=== PATIENT | male | born 1945 | race Caucasian/White ===

== ENCOUNTER 2021-02-20 16:27 | Emergency (ER) | payer OTHER, SELFPAY ==
[2021-02-20 16:40] VITALS: BP 133/64; PULSE 73; RESP 18; TEMP 36.6; O2SAT 99
--- NOTE | 2021-02-20 17:18 | ED.EAR ---
HPI - Ear Problem General Chief complaint: Ear Stated complaint: foreign object in ear Time Seen by Provider: 02/20/21 17:19 Source: patient and RN notes reviewed Mode of arrival: ambulatory Limitations: no limitations History of Present Illness HPI Narrative: 75-year-old male presents with concern for possible foreign body in the left ear. Reports he used a Q-tip and when he pulled the Q-tip out the cotton portion was gone. He believes it is in his ear. He denies pain, purulent discharge. Patient reports recent illness, unrelated to today's complaint that caused loss of hearing in the left ear, he denies any change to that with a foreign body. MD Complaint: foreign body Related Data Home Medications Medication Instructions Recorded Confirmed amlodipine 5 mg PO DAILY 02/20/21 02/20/21 aspirin [Adult Low Dose Aspirin] 81 mg PO DAILY 02/20/21 02/20/21 atenolol 50 mg PO DAILY 02/20/21 02/20/21 cholecalciferol (vitamin D3) 10 mcg PO DAILY 02/20/21 02/20/21 [Vitamin D3] coenzyme [id number] E [CoQ10 SG 1 cap PO DAILY 02/20/21 02/20/21 100] fluticasone propionate 50 mcg INTRANASAL DIRECTED 02/20/21 02/20/21 hydrochlorothiazide 25 mg PO DAILY 02/20/21 02/20/21 nystatin 1 applic TOPICAL DIRECTED 02/20/21 02/20/21 omega-3 fatty acids [Fish Oil] 3,600 mg PO DAILY 02/20/21 02/20/21 omeprazole 40 mg PO DAILY 02/20/21 02/20/21 pravastatin 40 mg PO DAILY 02/20/21 02/20/21 Allergies Allergy/AdvReac Type Severity Reaction Status Date / Time amoxicillin Allergy Unknown Hives Verified 02/20/21 16:33 alfuzosin Allergy Palpitation Verified 02/20/21 16:43 s atorvastatin [From Lipitor] Allergy Cramping Verified 02/20/21 16:43 of the Muscles ezetimibe [From Zetia] Allergy Redness of Verified 02/20/21 16:43 Skin niacin Allergy Redness of Verified 02/20/21 16:43 [From Niaspan Skin Extended-Release] rosuvastatin [From Crestor] Allergy Cramping Verified 02/20/21 16:43 of the Muscles simvastatin [From Zocor] Allergy Cramping Verified 02/20/21 16:43 of the Muscles tamsulosin Allergy Palpitation Verified 02/20/21 16:43 s ciprofloxacin [From Cipro] AdvReac Other Verified 02/20/21 16:44 Contrast Media Allergy Unknown Dyspnea / Uncoded 02/20/21 16:33 SOB LARITINE Allergy Unknown Hives Uncoded 02/20/21 16:41 Review of Systems Review of Systems: CONSTITUTIONAL: Denies malaise, chills, sweats, or fever. ENT: Denies rhinorrhea, congestion, sinus pain, otalgia or sore throat. Reports possible foreign body in the left ear SKIN: Denies rash or itching. NEUROLOGIC: Denies headache. All systems reviewed & are unremarkable except as noted in HPI and below PMFSH Comments At time of signature, agree with nursing past medical, surgical, social and family history. There is no relevant family history pertinent to the presenting complaint Exam Narrative: GENERAL: Well-appearing, well-nourished, and in no acute distress. HEAD: Normocephalic EYES: PERRLA, conjunctivae clear ENT: Mucous membranes moist. Foreign body noted in the left ear, after removed: TM pearly gibbs with sharp light reflex bilaterally; no tragal tenderness. NECK: Supple. CHEST: No respiratory distress. Speaks in full sentences. HEART: Regular rate and rhythm. SKIN: Warm, dry, no rash. NEURO: Alert and oriented x3. PSYCH: Normal mood and affect Course Course Emergency Course: Patient is aware of diagnosis, understands and agrees to treatment plan. Anticipatory guidance given. Patient agrees to follow-up as directed and is aware of reasons to seek care at the emergency department. Portions of this record may have been created with voice recognition software Vital Signs Vital signs: Vital Signs Temperature 97.8 F 02/20/21 16:40 Pulse Rate 73 02/20/21 16:40 Respiratory Rate 18 02/20/21 16:40 Blood Pressure 133/64 02/20/21 16:40 Pulse Oximetry 99 02/20/21 16:40 Temperature 97.8
== END 2021-02-20 17:28 | disposition home or self-care (01) ==
PROVIDERS: Emergency Provider Nurse Practitioner; PCP Family Medicine
DX: T16.2XXA Foreign body in left ear, initial encounter (principal); X58.XXXA Exposure to other specified factors, initial encounter; Z86.73 Personal history of transient ischemic attack (TIA), and cerebral infarction without residual deficits; I10 Essential (primary) hypertension; K21.9 Gastro-esophageal reflux disease without esophagitis; Z85.828 Personal history of other malignant neoplasm of skin
CPT/HCPCS: 69200; 99213; G0463

== ENCOUNTER 2022-02-01 11:03 | Emergency (ER) | payer OTHER, SELFPAY ==
[2022-02-01 11:13] VITALS: BP 182/75; PULSE 67; RESP 18; TEMP 36.4; O2SAT 99
--- NOTE | 2022-02-01 12:03 | ED.SKABFB ---
HPI - Skin/Abscess/Foreign Bdy General Chief complaint: Skin/Abscess/Foreign Body Stated complaint: Rash On Arm Time Seen by Provider: 02/01/22 11:55 Source: patient Mode of arrival: ambulatory Limitations: no limitations History of Present Illness HPI narrative: Patient presents today complaining of 2 small red dots on the right inner proximal elbow that have been present x1 week. He is concerned he may be shingles. He just had shingles in October that lasted for 2 months. He has tried some lotion at home that made the area burn. He otherwise has no pain or drainage.He has been scratching the area while asleep at night. Related Data Home Medications Medication Instructions Recorded Confirmed amlodipine 5 mg tablet 5 mg PO DAILY 02/20/21 02/01/22 aspirin 81 mg tablet 81 mg PO DAILY 02/20/21 02/01/22 atenolol 50 mg tablet 50 mg PO DAILY 02/20/21 02/01/22 cholecalciferol (vitamin D3) 10 10 mcg PO DAILY 02/20/21 02/01/22 mcg (400 unit) tablet (Vitamin D3) coenzyme K27-jctveol E 100 mg-100 1 cap PO DAILY 02/20/21 02/01/22 unit capsule fluticasone propionate 50 50 mcg intranasal DIRECTED 02/20/21 02/01/22 mcg/actuation nasal spray,suspension hydrochlorothiazide 25 mg tablet 25 mg PO DAILY 02/20/21 02/01/22 omega-3 fatty acids 3,600 mg PO DAILY 02/20/21 02/01/22 omeprazole 40 mg capsule,delayed 40 mg PO DAILY 02/20/21 02/01/22 release pravastatin 40 mg tablet 40 mg PO DAILY 02/20/21 02/01/22 Allergies Allergy/AdvReac Type Severity Reaction Status Date / Time amoxicillin Allergy Unknown Hives Verified 02/01/22 11:54 alfuzosin Allergy Palpitation Verified 02/01/22 11:54 s atorvastatin [From Lipitor] Allergy Cramping Verified 02/01/22 11:54 of the Muscles ezetimibe [From Zetia] Allergy Redness of Verified 02/01/22 11:54 Skin niacin Allergy Redness of Verified 02/01/22 11:54 [From Niaspan Skin Extended-Release] rosuvastatin [From Crestor] Allergy Cramping Verified 02/01/22 11:54 of the Muscles simvastatin [From Zocor] Allergy Cramping Verified 02/01/22 11:54 of the Muscles tamsulosin Allergy Palpitation Verified 02/01/22 11:54 s ciprofloxacin [From Cipro] AdvReac Other Verified 02/01/22 11:54 Contrast Media Allergy Unknown Dyspnea / Uncoded 02/01/22 11:54 SOB LARITINE Allergy Unknown Hives Uncoded 02/01/22 11:54 Review of Systems Review of Systems: CONSTITUTIONAL: Denies body aches, fever, chills, or sweats. EYES: Denies visual changes, redness, or discharge. ENT: Denies rhinorrhea, congestion, sore throat, or otalgia. CARDIOVASCULAR: Denies chest pain, palpitations, or edema. RESPIRATORY: Denies cough or dyspnea. GASTROINTESTINAL: Denies abdominal pain, nausea, vomiting, or diarrhea. GENITOURINARY: Denies dysuria or hematuria. SKIN: Denies itching, or wounds.+Rash MUSCULOSKELETAL: Denies back pain, joint pain, or myalgia. NEUROLOGIC: Denies headache, numbness, tingling, or weakness. PSYCH: Denies depression or anxiety. PMFSH Comments At time of signature, I have reviewed and agree with nursing past medical, surgical, social and family history unless otherwise noted. Please see nursing chart for further information. There is no relevant family history pertinent to the presenting complaint Exam Narrative: GENERAL: Well-appearing, well-nourished, and in no acute distress. HEAD: Normocephalic, atraumatic. EYES: EOMI. No redness or drainage. Conjunctivae normal. ENT: Mucous membranes pink and moist. NECK: Normal AROM. CHEST: No respiratory distress. EXTREMITIES: Normal range of motion. No edema. SKIN: Warm, dry. Capillary refill normal. Normal skin turgor. +2 pinpoint scabbed dots to the right inner elbow. They are slightly pink. No surrounding induration, no vesicles, no drainage, no tenderness. NEURO: No focal deficits. Alert and oriented x3. Gait steady. PSYCH: Normal affect. No signs of depression or anxiety. Course C
== END 2022-02-01 12:16 | disposition home or self-care (01) ==
PROVIDERS: Emergency Provider Nurse Practitioner; PCP Family Medicine
DX: L30.9 Dermatitis, unspecified (principal); I10 Essential (primary) hypertension; Z85.828 Personal history of other malignant neoplasm of skin; Z86.73 Personal history of transient ischemic attack (TIA), and cerebral infarction without residual deficits; Z95.1 Presence of aortocoronary bypass graft
CPT/HCPCS: 99213; G0463

== ENCOUNTER 2024-07-14 12:56 | Emergency (ER) | payer OTHER, SELFPAY ==
[2024-07-14 13:08] VITALS: BP 155/74; PULSE 76; RESP 20; TEMP 36.9; O2SAT 97
--- NOTE | 2024-07-14 13:19 | ED_ITS ---
HPI - URI/Sore Throat General Chief Complaint: Upper Respiratory Infection Stated Complaint: Cough/weak Time Seen by Provider: 07/14/24 13:19 Source: patient, RN notes reviewed and old records reviewed Mode of arrival: ambulatory Limitations: no limitations History of Present Illness HPI Narrative: Left knee 8-year-old male presents to the [facility] with complaints of cough, nasal drainage, headache, fatigue Symptoms started yesterday Onset (ago): day(s) (1) Treatments prior to arrival: cold medicine Related Data Home Medications ?Medication ?Instructions ?Recorded ?Confirmed ?Last Taken ?Type amlodipine 5 mg tablet 5 mg PO DAILY 02/20/21 02/01/22 Unknown History aspirin 81 mg tablet 81 mg PO DAILY 02/20/21 02/01/22 Unknown History atenolol 50 mg tablet 50 mg PO DAILY 02/20/21 02/01/22 Unknown History cholecalciferol (vitamin D3) 10 10 mcg PO DAILY 02/20/21 02/01/22 Unknown Hi story mcg (400 unit) tablet (Vitamin D3) coenzyme [id number] E 100 mg-100 1 cap PO DAILY 02/20/21 02/01/22 Unknown History unit capsule fluticasone propionate 50 50 mcg intranasal DIRECTED 02/20/21 02/01/22 Unknown History mcg/actuation nasal spray,suspension hydrochlorothiazide 25 mg tablet 25 mg PO DAILY 02/20/21 02/01/22 Unknown History omega-3 fatty acids 3,600 mg PO DAILY 02/20/21 02/01/22 Unknown History omeprazole 40 mg capsule,delayed 40 mg PO DAILY 02/20/21 02/01/22 Unknown History release pravastatin 40 mg tablet 40 mg PO DAILY 02/20/21 02/01/22 Unknown History Allergies Allergy/AdvReac Type Severity Reaction Status Date / Time amoxicillin Allergy Unknown Hives Verified 02/01/22 11:54 alfuzosin Allergy Palpitation Verified 02/01/22 11:54 s atorvastatin (From Lipitor) Allergy Cramping Verified 02/01/22 11:54 of the Muscles ezetimibe (From Zetia) Allergy Redness of Verified 02/01/22 11:54 Skin niacin (From Niaspan Allergy Redness of Verified 02/01/22 11:54 Extended-Release) Skin rosuvastatin (From Crestor) Allergy Cramping Verified 02/01/22 11:54 of the Muscles simvastatin (From Zocor) Allergy Cramping Verified 02/01/22 11:54 of the Muscles tamsulosin Allergy Palpitation Verified 02/01/22 11:54 s ciprofloxacin (From Cipro) AdvReac Other Verified 02/01/22 11:54 Contrast Media Allergy Unknown Dyspnea / Uncoded 02/01/22 11:54 SOB LARITINE Allergy Unknown Hives Uncoded 02/01/22 11:54 Review of Systems Review of Systems: All systems reviewed & are unremarkable except as noted in HPI and below Constitutional: Constitutional: Reports as per HPI, Reports body ache(s) and Reports headache(s) ENT: Reports as per HPI and Reports nasal congestion Cardiovascular: Cardiovascular: Reports no additional cardiovascular complaints, Denies chest pain and Denies dyspnea Respiratory: Respiratory: Reports as per HPI, Denies chest congestion, Reports cough and Denies dyspnea Musculoskeletal: Musculoskeletal: Reports no additional musculoskeletal complaints Integumentary/Breasts: Skin/Breast: Reports system reviewed and no additional complaints, except as docu PMFSH Past Medical History Medical History High cholesterol History of high blood pressure Comments At the time of my signature, I reviewed and agree with the nursing past medical, surgical, social, and family history. There is no relevant family history pertinent to the patient complaint. Exam Const: General: cooperative, comfortable, no acute distress, well developed, alert, ill appearing chronically; not acutely and well nourished Nutritional Appearance: well nourished and obese Orientation/consciousness: patient oriented x3 Limitations: no limitations HENMT: Head: normal to inspection Ears: external ears normal and other (Hard of hearing) Eyes: General: appearance normal, both eyes and all related structures Alignment and Position: alignment normal Neck: Neck: normal visual inspection, full ROM, no lymphadenopathy and no meningeal signs Chest: Chest palpation & inspection: normal inspection of the chest Resp: Effort & Inspection: normal respiratory effort and able to speak in complete sentences Auscultation: clear to auscultation bilaterally, no crackles, no rales, no rhonchi, no wheezes and diminished lung sounds bilateral Cardio: Rate: regular rate Skin: General skin exam: normal color and no rashes or lesions noted Neuro: General: patient oriented x3, gait normal, moves all extremities and no meningeal signs Cognition (Neuro): normal cognition Speech: normal speech Gait exam (Neuro): Normal gait present Extrem: General: normal to inspection, full ROM, capillary refill normal and normal gait Psych: Appearance: grossly normal and well kempt Mental Status: mental status grossly normal Speech and movement: Normal speech and movement present and Clear speech present Affect: normal affect Attitude: cooperative Course Course Level of Care: Express Care Visit Vital Signs Vital signs: Vital Signs Temperature 98.5 F 07/14/24 13:08 Pulse Rate 76 07/14/24 13:08 Respiratory Rate 20 07/14/24 13:08 Blood Pressure 155/74 H 07/14/24 13:08 Pulse Oximetry 97 07/14/24 13:08 Oxygen Delivery Room Air 07/14/24 13:08 Temperature 98.5 F 07/14/24 13:08 Pulse Rate 76 07/14/24 13:08 Respiratory Rate 20 07/14/24 13:08 Blood Pressure 155/74 H 07/14/24 13:08 Pulse Oximetry 97 07/14/24 13:08 Oxygen Delivery Room Air 07/14/24 13:08 Reviewed MDM - URI/Sore Throat MDM Narrative Medical decision making narrative: Patient sitting in exam room. Nontoxic, vitals stable. Patient in no acute distress. Patient presents with 1 day history congestion headache body aches. Patient is positive for COVID. Discussed with patient to contact primary, unable to see if he has had any kidney issues, patient and for unsure. Educated patient and that we are not affiliated with [facility] nor can we see any of the labs, x-rays or reports from his primary Discussed signs and symptoms proceed to the emergency Differential Diagnosis Differential diagnosis: Likely upper respiratory infection, otitis media, sinusitis, viral infection and influenza Lab Data Labs: Lab Results 07/14/24 Range/Units 13:13 POC Influenza A Ag Negative (Negative) POC Influenza B Ag Negative (Negative) POC SARS CoV-2 Ag Positive (Negative) Reviewed Critical Care Time Critical Care Time Critical Care Time: No Discharge Plan Discharge Clinical Impression: COVID-19 Patient Disposition: Home, Self-Care Condition: Stable Instructions: Antibiotic Form, COVID-19 (Coronavirus Disease 2019) (ED), COVID- 19 and Chronic Health Conditions (ED), COVID-19: Slow the Coronavirus Spread (ED) Additional Instructions: Your rapid COVID test was positive Without recent lab work we are unable to prescribe the antiviral. You can try calling your primary care provider and see if they are willing to prescribe medication Your rapid flu test was negative Your symptoms are due to a viral illness, which is not treated with antibiotics. Typically viral infections last 7-10 days, can linger for couple o f weeks. It is very important to treat your symptoms. Drink plenty of water, Gatorade, Pedialyte, ice pops or Jell-O. -Alternate Tylenol and Motrin per package directions for fever or pain. You can alternate every 4 hours -Antihistamine medication such as Zyrtec/Claritin/Tess during the day can help improve symptoms. -doing daily nasal irrigations can help relieve pressure your sinuses. Things like a Neti pot -Use Flonase twice a day for 5 days then daily to help reduce the inflammation and dry up your sinuses. -You can also use Coricidin HBP or Mucinex. Be sure to drink plenty of water with this medication at least 8 ounces with every dose and it is important to drink 8 to 10 glasses of water per day. Water is a natural decongestant -Eat and drink things that are easy to swallow, like tea or soup, or popsicles. -Oral rinses such as: Salt water gargles and/or may use topical anesthetic (eg. Chloraseptic spray) or lozenges to relieve dryness or throat pain). -Frequent hand washing or hand fruit sprayer is one of the best ways to prevent spread of infection. -Using a vaporizer or humidifier at night will also help thin secretions and help with coughing up phlegm. -Follow up with primary care provider in 7-10 days if condition is not improving - For new or worsening symptoms go directly to the nearest ER Patient Language: Kyrgyz Prescriptions: No Action mupirocin 2 % ointment 1 applic topical BID Qty: 22 0RF pravastatin 40 mg tablet 40 mg PO DAILY amlodipine 5 mg tablet 5 mg PO DAILY omeprazole 40 mg capsule,delayed release(DR/EC) 40 mg PO DAILY hydrochlorothiazide 25 mg tablet 25 mg PO DAILY fluticasone propionate 50 mcg/actuation spray,suspension 50 mcg INTRANASAL DIRECTED atenolol 50 mg tablet 50 mg PO DAILY Adult Low Dose Aspirin 81 mg Tablet 81 mg PO DAILY Fish Oil Capsule 3,600 mg PO DAILY CoQ10 SG 100 100-100 mg-unit Capsule 1 cap PO DAILY cholecalciferol (vitamin D3) [Vitamin D3] 10 mcg (400 unit) Tablet 10 mcg PO DAILY Follow-up/Referrals: Ruddy,uKrtis Delgadillo MD [Primary Care Provider] - 1 Week ([facility] care follow up ) Time of Disposition: 13:32
[2024-07-14 13:24] LABS: EDCOVIDSCREEN Positive (Negative); EDINFLUASCREEN Negative (Negative); EDINFLUBSCREEN Negative (Negative)
== END 2024-07-14 13:33 | disposition home or self-care (01) ==
PROVIDERS: Emergency Provider Nurse Practitioner; PCP Family Medicine
DX: U07.1 COVID-19 (principal); I10 Essential (primary) hypertension; E78.00 Pure hypercholesterolemia, unspecified; Z79.82 Long term (current) use of aspirin
CPT/HCPCS: 87426; 87804; 99212; G0463

== ENCOUNTER 2024-11-28 15:32 | Emergency (ER) | payer OTHER, SELFPAY ==
--- NOTE | 2024-11-28 15:34 | ED_ITS ---
HPI - Eye Problem General Chief complaint: Eye Problems Stated complaint: Eyes Irritation Time Seen by Provider: 11/28/24 15:34 Source: patient Mode of arrival: ambulatory Limitations: no limitations History of Present Illness HPI Narrative: Syed is an 79-year-old male patient presenting to the clinic today with complaints of right eye irritation that started this morning. He reports feeling as though there may be something in the right lower lateral eyelid. Does have redness in the right eye. No known injury to the eye. Denies any known foreign body getting into the eye. Woke up this morning with his eye red and tender. Denies any visual changes. Related Data Home Medications ?Medication ?Instructions ?Recorded ?Confirmed ?Last Taken ?Type amlodipine 5 mg tablet 5 mg PO DAILY 02/20/21 02/01/22 Unknown History aspirin 81 mg tablet 81 mg PO DAILY 02/20/21 02/01/22 Unknown History atenolol 50 mg tablet 50 mg PO DAILY 02/20/21 02/01/22 Unknown History cholecalciferol (vitamin D3) 10 10 mcg PO DAILY 02/20/21 02/01/22 Unknown History mcg (400 unit) tablet (Vitamin D3) coenzyme [id number] E 100 mg-100 1 cap PO DAILY 02/20/21 02/01/22 Unknown History unit capsule fluticasone propionate 50 50 mcg intranasal DIRECTED 02/20/21 02/01/22 Unknown History mcg/actuation nasal spray,suspension hydrochlorothiazide 25 mg tablet 25 mg PO DAILY 02/20/21 02/01/22 Unknown History omega-3 fatty acids 3,600 mg PO DAILY 02/20/21 02/01/22 Unknown History omeprazole 40 mg capsule,delayed 40 mg PO DAILY 02/20/21 02/01/22 Unknown History release pravastatin 40 mg tablet 40 mg PO DAILY 02/20/21 02/01/22 Unknown History amitriptyline 50 mg tablet mg 11/28/24 Unknown History Allergies Allergy/AdvReac Type Severity Reaction Status Date / Time amoxicillin Allergy Unknown Hives Verified 11/28/24 15:35 alfuzosin Allergy Palpitation Verified 11/28/24 15:35 s atorvastatin (From Lipitor) Allergy Cramping Verified 11/28/24 15:35 of the Muscles ezetimibe (From Zetia) Allergy Redness of Verified 11/28/24 15:35 Skin niacin (From Niaspan Allergy Redness of Verified 11/28/24 15:35 Extended-Release) Skin rosuvastatin (From Crestor) Allergy Cramping Verified 11/28/24 15:35 of the Muscles simvastatin (From Zocor) Allergy Cramping Verified 11/28/24 15:35 of the Muscles tamsulosin Allergy Palpitation Verified 11/28/24 15:35 s ciprofloxacin (From Cipro) AdvReac Other Verified 11/28/24 15:35 Contrast Media Allergy Unknown Dyspnea / Uncoded 11/28/24 15:35 SOB LARITINE Allergy Unknown Hives Uncoded 11/28/24 15:35 Review of Systems Review of Systems: Pertinent positives per HPI. Patient denies any fever, chills, rash, headache, visual changes, dizziness, cough, shortness of breath, chest pain, palpitations, nausea, vomiting, diarrhea, constipation, abdominal pain, or any urinary issues. PMFSH Past Medical History Medical History High cholesterol History of high blood pressure Comments At the time of my signature, I reviewed and agree with the nursing past medical, surgical, social, and family history. There is no relevant family history pertinent to the patient complaint. Exam Narrative: General: Well-developed, well nourished, in no apparent distress Head: Normocephalic, atraumatic Eyes: Pupils equally round and reactive to light bilaterally, EOM intact, left sclera and conjunctive clear, right sclera with subconjunctival hemorrhage on the lateral side that does not cross the iris, no discharge, lids normal, no foreign body visualized, Wood's lamp exam was performed and no visualization of corneal abrasion or Toño sign. Ears: TMs intact and clear, ear canals clear, no drainage, grossly hearing normal. Nose: Nares patent, no discharge, no inflammation, no sinus tenderness. Mouth: Oral pharynx without lesions or masses, good dentition, MMM. Neck: Supple, trachea midline, no enlargement of anterior or posterior cervical nodes, no thyroid masses or goiter palpable. Cardio: Regular rate and rhythm, s1 and s2 normal, no murmur appreciated. Resp: Clear to auscultation bilaterally, no rhonchi, rales, wheezing or rubs Course Course Emergency Course: Portions of this record may have been created with voice recognition software. Level of Care: Express Care Visit Vital Signs Vital signs: Vital Signs Temperature 36.7 C 11/28/24 15:44 Pulse Rate 71 11/28/24 15:44 Respiratory Rate 16 11/28/24 15:44 Blood Pressure 141/60 H 11/28/24 15:44 Pulse Oximetry 98 11/28/24 15:44 Oxygen Delivery Room Air 11/28/24 15:44 Temperature 36.7 C 11/28/24 15:44 Pulse Rate 71 11/28/24 15:44 Respiratory Rate 16 11/28/24 15:44 Blood Pressure 141/60 H 11/28/24 15:44 Pulse Oximetry 98 11/28/24 15:44 Oxygen Delivery Room Air 11/28/24 15:44 Vital signs reviewed Procedures Other Procedure Procedure 1: Other Procedure: Two drops of topical tetracaine anesthetic was instilled with good anesthesia. Fluorescein stain of the right eye was performed without uptake of dye. No epithelial defect was noted. NO FB, ulcer or dendritic lesions. Upper lid was everted and no FB or lesions were noted. NO Toño sign. Normal saline irrigation eye solution was performed and the patient tolerated the procedure well, no adverse reaction or complications. Visual acuity noted. MDM - Eye Problem MDM Narrative Medical decision making narrative: At the time of visit patient is resting comfortably on the exam table. Patient appears to be nontoxic. Plan: Supportive measures were discussed with the patient and they voiced understanding discharge instructions and agrees to treatment plan. Return precautions reviewed Differential Diagnosis Differential diagnosis: Likely corneal abrasion, conjunctivitis, acute iritis, hyphema, periorbital cellulitis, subconjunctival hemorrhage, glaucoma, corneal ulcer and ruptured globe Discharge Plan Discharge Clinical Impression: Subconjunctival hemorrhage Qualifiers: Laterality: right Qualified Code(s): H11.31 - Conjunctival hemorrhage, right eye Patient Disposition: Home Condition: Stable Instructions: Antibiotic Form, Eye Pain (ED) Additional Instructions: I suspect patient has subconjunctival hemorrhage. Practice good hand washing techniques Avoid touching eyes Continue your eyedrops as prescribed May use cool moist washcloth to help remove eye discharge If eyes are matted shut-do not pry eyes open-use a warm moist cloth to loosen matting and wipe matter away from eye May take Tylenol as needed for pain or fever May take Benadryl as needed for itching Follow-up with your PCP in 3-5 days if symptoms persist or sooner if they worsen Go to the emergency room if you develop any fever that is not controlled by Tylenol or Motrin, loss of vision, eye pain, increase eye swelling,visual changes, headache, confusion, lethargy, weakness, chest pain, or shortness of breath. Patient Language: Romanian Prescriptions: No Action mupirocin 2 % ointment 1 applic topical BID Qty: 22 0RF amitriptyline 50 mg tablet pravastatin 40 mg tablet 40 mg PO DAILY amlodipine 5 mg tablet 5 mg PO DAILY omeprazole 40 mg capsule,delayed release(DR/EC) 40 mg PO DAILY hydrochlorothiazide 25 mg tablet 25 mg PO DAILY fluticasone propionate 50 mcg/actuation spray,suspension 50 mcg INTRANASAL DIRECTED atenolol 50 mg tablet 50 mg PO DAILY Adult Low Dose Aspirin 81 mg Tablet 81 mg PO DAILY Fish Oil Capsule 3,600 mg PO DAILY CoQ10 SG 100 100-100 mg-unit Capsule 1 cap PO DAILY cholecalciferol (vitamin D3) [Vitamin D3] 10 mcg (400 unit) Tablet 10 mcg PO DAILY Follow-up/Referrals: Ruddy,Kurtis Delgadillo MD [Primary Care Provider] - Time of Disposition: 16:03 Quality NIHSS Nursing Documentation ED NIHSS nursing documentation: reviewed/agree
[2024-11-28 15:44] VITALS: BP 141/60; PULSE 71; RESP 16; TEMP 36.7; O2SAT 98
[2024-11-28] MEDS: TETRACAINE HCL 0.5% OPHTH SOLN 4 ML BTL RIGHT EYE (15:52)
[2024-11-28] MEDS: FLUORESCEIN SOD 1 MG/STRIP RIGHT EYE (15:52)
[2024-11-28] MEDS: DACRIOSE EYE IRRIGATION 118 ML BOTTLE RIGHT EYE (15:52)
== END 2024-11-28 16:10 | disposition home or self-care (01) ==
PROVIDERS: Emergency Provider Nurse Practitioner Family; PCP Family Medicine
DX: H11.31 Conjunctival hemorrhage, right eye (principal); E78.00 Pure hypercholesterolemia, unspecified; I10 Essential (primary) hypertension; Z79.82 Long term (current) use of aspirin
CPT/HCPCS: 99213; A9270; G0463